=== PATIENT | male | born 1990 | race African-American/Black ===

== ENCOUNTER 2018-07-25 14:45 | Emergency (ER) | payer OTHER ==
[2018-07-25] MEDS ORDERED: 0.9 % SODIUM CHLORIDE 1,000 ML IV ONE ×2 (14:46→16:02)
--- NOTE | 2018-07-25 14:49 | ED Physician Documentation ---
General Adult - HISTORIAN Historian: patient - HPI Stated Complaint: lightheaded Chief Complaint: General Adult Additional Information: At 1100 today, he began to feel not well, "scared." Head felt "thick." This progressed to an episode of diaphoresis and he felt lightheaded. He thought he might pass out. FSG 76 per EMS. Symptoms continue, but not as severe. [place] lightheaded two weeks ago, but much less severe. He did not have CP or tachycardia. His hands felt "thick." Denies tingling, paresthesias. No HX panic attacks. Denies stressors. 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 Four children. MGF of heart event at age 42. No other modifying factors or associated signs. - ROS CONST: no problems - PAST HX Past History: none Allergies/Adverse Reactions: Allergies Allergy/AdvReac Type Severity Reaction Status Date / Time No Known Allergies Allergy Verified 07/25/18 14:58 Home Medications: Ambulatory Orders Medication Instructions Recorded NK 07/25/18 - SOCIAL HX Smoking History: non-smoker - FAMILY HX Family History: No - REVIEWED ASSESSMENTS Nursing Assessment Reviewed: Yes Vitals Reviewed: Yes Progress - Progress Progress: 1605, feels back to baseline Report Submission Date: Jul 25, 2018 3:56:13 PM CDT Patient Study Name: HETAL LOZANO Date: Jul 25, 2018 3:37:40 PM CDT Modality Type: DX Gender: M Description: CHEST : 89 Institution: [facility] Physician: DEACNO YEUNG - Examination: PA and lateral chest. History: Evaluate lung lynch. CXR, LIGHTHEADEDNESS TODAY. PT STATES HE GOT CLAMMY AND BEGAN SWEATING, FELT LIKE HE WAS GOING TO PASS OUT (Hx) Findings: PA and lateral views of the chest demonstrates a normal cardiac and mediastinal silhouette. No focal infiltrate. No blunting of the costophrenic margins. Osseous structures are appropriate for age. Impression: No acute pulmonary process. Electronically signed on Jul 25, 2018 3:56:13 PM CDT by: Diego Grady orthostatics w/ minimal changes ED Results Lab/Radiology - Orders Orders: ED Orders Category Date Time Status Continuous EKG monitoring Q1H Care 07/25/18 14:[address] IV Lock 1T Care 07/25/18 14:46 Ordered CBC/PLATELET/DIFF Routine Lab 07/25/18 Ordered CMP Routine Lab 07/25/18 Ordered TROPONIN I (cTnI) Stat Lab 07/25/18 Ordered URINALYSIS Routine Lab 07/25/18 Ordered NORMAL SALINE @ 1000 MLS/HR ( 1000ml BOLUS) Med 07/25/18 14:46 Ordered 0.9 % Sodium Chloride [Normal Saline] 1,000 ml IV Q1H EKG WITH COMPARISON Stat Ther 07/25/18 Ordered General Adult Physical Exam - PHYSICAL EXAM GENERAL APPEARANCE: moderate distress (anxious) EENT: eye inspection normal, ENT inspection normal, pharynx normal NECK: normal inspection, supple RESPIRATORY: no resp distress, breath sounds normal CVS: reg rate & rhythm, heart sounds normal, no murmur ABDOMEN: soft, normal bowel sounds, no distension BACK: normal inspection, no CVA tenderness, other (no vertebral tenderness) SKIN: warm/dry, normal color EXTREMITIES: normal range of motion (gait and stance), no evidence of injury NEURO: CN's nml as tested, motor nml, sensation nml, cognition normal Discharge Clincal Impression: Lightheaded Referrals: Primary Doctor,No [Primary Care Provider] - 2 Days Additional Instructions: Your EKG, chest x-ray and lab results were all reassuring. You were a little dry. Drink plenty of water. Follow up with your provider as needed. Return to the ER if your condition worsens. Condition: Good Disposition: 01 HOME, SELF-CARE Decision to Admit: NO Decision Time: 17:50
[2018-07-25 15:01] LABS: BASOPHILS % 0.2 (0.0-1.5); MEAN CORPUSCULAR HEMOGLOBIN 32.1 pg (28.0-34.0); MEAN CORPUSCULAR VOLUME 92.3 fl (80.0-100.0); MONOCYTES % 3.9 % (0.0-11.0); NEUTROPHILS # 3.5 # k/uL (1.4-7.7)
[2018-07-25 15:42] LABS: eGFR (Non-African) > 60
[2018-07-25 17:46] VITALS: BP 115/60
--- NOTE | 2018-07-25 18:36 | Diagnostic Imaging Report ---
DEACON YEUNG [facility] [id number] [facility] [address] [place] [address]. [id number] Report Submission Date: Jul 25, 2018 3:56:13 PM CDT Patient Study Name: HETAL LOZANO Date: Jul 25, 2018 3:37:40 PM CDT Modality Type: DX Gender: M Description: CHEST : 89 Institution: [facility] Physician: DEACON YEUNG Examination: PA and lateral chest. History: Evaluate lung lynch. CXR, LIGHTHEADEDNESS TODAY. PT STATES HE GOT CLAMMY AND BEGAN SWEATING, FELT LIKE HE WAS GOING TO PASS OUT (Hx) Findings: PA and lateral views of the chest demonstrates a normal cardiac and mediastinal silhouette. No focal infiltrate. No blunting of the costophrenic margins. Osseous structures are appropriate for age. Impression: No acute pulmonary process. Electronically signed on Jul 25, 2018 3:56:13 PM CDT by: Diego KITCHEN
== END 2018-07-25 18:00 | disposition home or self-care (01) ==
LOC: ED 14:45
DX: R42 Dizziness and giddiness (principal)
CPT/HCPCS: 71046; 80053; 84484; 85025; 93005; J7030; 96365; 96366; 99284; S1016